=== PATIENT | male | born 1960 | race Caucasian/White ===

== ENCOUNTER 2017-01-11 10:53 | Emergency (ER) | payer MEDICARE, BC, OTHER ==
[~2017-01-11] VITALS: Ht 175.3 cm; Wt 93.5 kg
[2017-01-11 10:56] VITALS: BP 175/99; PULSE 82; RESP 24; O2SAT 100
[2017-01-11 11:05] VITALS: BP 174/97; PULSE 77; RESP 18; TEMP 98.2; O2SAT 98
[2017-01-11] MEDS ORDERED: SODIUM CHLOR 0.9% 1000 ML INJ 1,000 ML IV ONE (11:23)
[2017-01-11] MEDS ORDERED: diphenhydrAMINE HCL 50 MG/ML VIAL IV PUSH ONE (11:30)
[2017-01-11] MEDS ORDERED: KETOROLAC TROMETHAMINE 30 MG/ML (IVP) VIAL IVP ONE (11:30)
[2017-01-11] MEDS ORDERED: SODIUM CHLORIDE 0.9% FLUSH 5 ML FLUSH IVF PRN (11:30)
[2017-01-11] MEDS ORDERED: PROCHLORPERAZINE INJ 10 MG/2 ML VIAL IVP ONE (11:30)
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
[2017-01-11] MEDS ORDERED: ACETAMIN 325 MG/BUTALBITAL 50 MG/CAFFEINE 40 MG TAB PO ONE (12:15)
[2017-01-11 13:04] VITALS: BP 174/69
[2017-01-11 13:05] VITALS: BP 174/68; PULSE 79
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
[2017-01-11] MEDS ORDERED: BUTA1CAP PO (14:04)
== END 2017-01-11 14:35 | disposition home or self-care (01) ==
LOC: NEPC 10:53
DX: R51 Headache (principal); R11.2 Nausea with vomiting, unspecified; I10 Essential (primary) hypertension; J44.9 Chronic obstructive pulmonary disease, unspecified
CPT/HCPCS: 96361; 96374; 96375; 99283; J0780; J1200; J1885; J7030